=== PATIENT | female | born 1950 | race Caucasian/White ===

== ENCOUNTER 2020-02-19 08:22 | Outpatient (CLI) | payer MEDICARE ==
[~2020-02-19 08:22] MED LIST: ALPR1TAB2 PO; CARI350T PO; CEFD300C37 PO; DIAZ5TAB4 PO; FURO-92 PO; GABA-826 PO; LACT10SO24 PO; LACT10SO28 PO; META800T PO; OMEP-110 PO; ONDA4TAB10 PO; OXYC5CAP2 PO; RIFA200T5 PO; RIFA550T4 PO; SPIR50TA4 PO; SUMA4PEN IM; VIT D2 PO
[2020-02-19 09:32] LABS: ALANINE AMINOTRANSFERASE 25 U/L (12-78); ALBUMIN 3.3 g/dL (3.4-5.0); ANION GAP 3 mmol/L (5-15); CALCIUM 8.9 mg/dL (8.5-10.1); CHLORIDE 111 mmol/L (98-107); CREATININE 0.72 mg/dL (0.55-1.02)
[2020-02-19 09:34] LABS: ALKALINE PHOSPHATASE 116 U/L (45-117); BILIRUBIN,TOTAL 0.8 mg/dL (0.2-1.0); TOTAL PROTEIN 6.3 g/dL (6.4-8.2)
[2020-02-19 10:00] LABS: MEAN CORPUSCULAR HEMOGLOBIN 28.7 pg (27.0-34.8); MEAN CORPUSCULAR HGB CONC 32.8 g/dL (32.4-35.8); MEAN CORPUSCULAR VOLUME 87.5 fL (80-100); MEAN PLATELET VOLUME 7.1 fL (7.4-10.4); PLATELET COUNT 60 x10^3/uL (130-400); RED BLOOD COUNT 4.23 x10^6/uL (3.82-5.3); RED CELL DISTRIBUTION WIDTH 16.9 % (9.6-15.2)
[2020-02-19 10:03] LABS: BASOPHILS # (AUTO) 0.01 x10^3/uL (0-0.1); BASOPHILS % (AUTO) 0 % (0-1); EOSINOPHILS # (AUTO) 0.06 x10^3/uL (0-0.4); EOSINOPHILS % (AUTO) 4 % (1-7); LYMPHOCYTES # (AUTO) 0.36 x10^3/uL (1-3.4); LYMPHOCYTES % (AUTO) 23 % (22-44); MD SCAN; MONOCYTES # (AUTO) 0.11 x10^3/uL (0.2-0.8); MONOCYTES % (AUTO) 7 % (2-9); NEUTROPHILS # (AUTO) 1.08 x10^3/uL (1.8-6.8); NEUTROPHILS % (AUTO) 67 % (42-75)
[2020-02-19] MEDS ORDERED: HYDR-826 PO (10:31)
[2020-02-19] MEDS ORDERED: GABA300C PO (10:31)
[2020-02-19] MEDS ORDERED: CARV6.252 PO (10:31)
[2020-02-19] MEDS ORDERED: LACT10SO28 PO (10:31)
[2020-02-19] MEDS ORDERED: ACET-709 PO (10:31)
[2020-02-19] MEDS ORDERED: TRAM50TA2 PO (10:31)
[2020-02-19] MEDS ORDERED: FURO40TA6 PO (10:31)
[2020-02-19] MEDS ORDERED: METF500T17 PO (10:31)
[2020-02-19] MEDS ORDERED: RIFA550T4 PO (10:31)
[2020-02-19] MEDS ORDERED: ERGO500017 PO (10:31)
== END 2020-02-19 23:59 | disposition home or self-care (01) ==
LOC: STAR 08:22
PROVIDERS: ATTEND Internal Medicine Gastroenterology
DX: Z01.818 Encounter for other preprocedural examination (principal); K92.2 Gastrointestinal hemorrhage, unspecified
CPT/HCPCS: 36415; 80053; 85025; 93005

== ENCOUNTER 2020-02-27 13:00 | Day surgery (SDC) | payer MEDICARE ==
[~2020-02-27] VITALS: Ht 162.6 cm; Wt 100.1 kg
[~2020-02-27 13:00] MED LIST changes: +ACET-709 PO; +CARV6.252 PO; +ERGO500017 PO; +FURO40TA6 PO; +GABA300C PO; +HYDR-826 PO; +METF500T17 PO; +TRAM50TA2 PO
[2020-02-27 13:52] VITALS: BP 145/84
[2020-02-27] MEDS ORDERED: CHLORHEXIDINE 15 ML UDC MM ONE (14:30)
[2020-02-27] MEDS ORDERED: LACTATED RINGERS 1,000 ML IV SCH (14:32)
[2020-02-27] MEDS ORDERED: PROPOFOL 50 ML ONE ×2 (14:35→14:38)
[2020-02-27] MEDS ORDERED: FENTANYL PF 100 MCG/2ML ONE (14:36)
[2020-02-27] MEDS ORDERED: ROCURONIUM 10 MG/ML,10ML ONE (14:52)
[2020-02-27] MEDS ORDERED: SUCCINYLCHOLINE 20 MG/ML, 10ML ONE (14:52)
[2020-02-27] MEDS ORDERED: ONDANSETRON 2MG/ML, 2ML ONE (14:52)
[2020-02-27] MEDS ORDERED: hydrALAzine 20 MG/ML, 1ML IV PRN (15:30)
[2020-02-27] MEDS ORDERED: DIAZEPAM 5 MG/ML, 2ML IVPush PRN (15:30)
[2020-02-27] MEDS ORDERED: OXYcodone 5 MG/5 ML ORAL.SOL UDC PO PRN (15:30)
[2020-02-27] MEDS ORDERED: EPHEDRINE 50 MG/ML, 1ML IVPush PRN (15:30)
[2020-02-27] MEDS ORDERED: ONDANSETRON 2MG/ML, 2ML IVPush PRN (15:30)
[2020-02-27] MEDS ORDERED: PROMETHAZINE 25 MG/ML, 1ML IVPush PRN (15:30)
[2020-02-27] MEDS ORDERED: FENTANYL PF 100 MCG/2ML IV PRN (15:30)
[2020-02-27] MEDS ORDERED: DIPHENHYDRAMINE 50 MG/ML, 1ML IVPush PRN (15:30)
[2020-02-27] MEDS ORDERED: HYDROmorphone 1 MG/ML, 1ML INJ IVPush PRN (15:30)
[2020-02-27] MEDS ORDERED: LABETALOL 5MG/ML, 20ML IV PRN (15:30)
[2020-02-27] MEDS ORDERED: EPHEDRINE 50 MG/ML, 1ML IM PRN (15:30)
[2020-02-27 16:03] LABS: INTERNATIONAL NORMALIZED RATIO 1.21 (0.93-1.1); PROTHROMBIN TIME 12.5 Seconds (9.6-11.5)
== END 2020-02-27 16:55 | disposition home or self-care (01) ==
LOC: OUT 13:00
PROVIDERS: ATTEND Internal Medicine Gastroenterology
DX: K92.2 Gastrointestinal hemorrhage, unspecified (principal); K76.6 Portal hypertension; K31.89 Other diseases of stomach and duodenum; I48.91 Unspecified atrial fibrillation; Z88.8 Allergy status to other drugs, medicaments and biological substances; Z79.899 Other long term (current) drug therapy; Z88.0 Allergy status to penicillin; Z85.038 Personal history of other malignant neoplasm of large intestine; Z98.84 Bariatric surgery status
CPT/HCPCS: 36415; 44366; 44799; 82962; 85610; 85730; 87635; A4648; J0330; J2405; J2704; J3010; J7120